=== PATIENT | female | born 1970 | race Caucasian/White ===

== ENCOUNTER 2019-12-19 14:31 | Outpatient (CLI) | payer BC ==
--- NOTE | 2019-12-19 15:14 | MMO ---
Left Breast MAMMO Unilat Diag [facility] LT+[facility]. CLINICAL HISTORY: Patient is 49 years old and is seen for diagnostic exam. The patient has no family history of breast cancer. The patient has no personal history of cancer. VIEWS: The views performed were: left craniocaudal spot compression with tomosynthesis; left mediolateral oblique spot compression with tomosynthesis; and left mediolateral with tomosynthesis. FILMS COMPARED: The present examination has been compared to prior imaging studies performed at [facility] on 12/11/2019, and at [facility] on 11/25/2017, 11/29/2017 and 12/05/2018. This study has been interpreted with the assistance of computer-aided detection. MAMMOGRAM FINDINGS: Additional views were performed. The previously seen abnormality is not definitely seen on the current study. There are no suspicious masses, suspicious calcifications, or new areas of architectural distortion. IMPRESSION: THERE IS NO MAMMOGRAPHIC EVIDENCE OF MALIGNANCY. A ROUTINE FOLLOW-UP MAMMOGRAM IN 1 YEAR IS RECOMMENDED. THE RESULTS OF THIS EXAM WERE SENT TO THE PATIENT. ACR BI-RADS Category 2 - Benign finding MAMMOGRAPHY NOTE: 1. A negative mammogram report should not delay a biopsy if a dominant of clinically suspicious mass is present. 2. Approximately 10% to 15% of breast cancers are not detected by mammography. 3. Adenosis and dense breasts may obscure an underlying neoplasm. Reported by: TIANNA HOUSTON MD Electonically Signed: [id number]
== END 2019-12-19 14:32 | disposition home or self-care (01) ==
LOC: BICMAMMO 14:31
PROVIDERS: ATTEND Internal Medicine
DX: R92.2 Inconclusive mammogram (principal)
CPT/HCPCS: G0279